=== PATIENT | male | born 1960 | race Caucasian/White ===

== ENCOUNTER 2017-12-18 22:10 | Emergency (ER) | payer OTHER ==
[~2017-12-18] VITALS: Ht 185.4 cm; Wt 59.0 kg
--- NOTE | 2017-12-18 22:30 | NUR ---
Patient brought in by rescue from [facility]. Worker called 911 due to left rib cage pain. Patient upon arrival states pain has been there 5 years. Patient slurring speech at times,falling asleeping upon interview. Admits to drink ETOH prior to arrival and smell of ETOH. No trauma noted on patient
[2017-12-18] MEDS ORDERED: IV NORMAL SALINE 1000 ML BAG IV ONE (22:45)
[2017-12-18 23:06] LABS: BASOPHILS % (AUTO) 0.6 % (0.0-2.0); EOSINOPHILS % (AUTO) 0.1 % (0.0-7.0); HEMATOCRIT 38.5 % (36.7-47.1); LYMPHOCYTES # (AUTO) 0.6 K/uL (20.0-40.0); LYMPHOCYTES % (AUTO) 8.5 % (20.5-51.5); MEAN CORPUSCULAR HEMOGLOBIN 32.3 uug (23.8-33.4); MEAN CORPUSCULAR HGB CONC 34 g/dL (32.5-36.3); MEAN CORPUSCULAR VOLUME 95.6 fL (73.0-96.2); MONOCYTES # (AUTO) 0.4 K/uL (2.0-10.0); MONOCYTES % (AUTO) 5.7 % (0.0-11.0); NEUTROPHILS # (AUTO) 6.2 K/uL (1.8-8.9); NEUTROPHILS % (AUTO) 85.1 % (38.5-71.5); PLATELET COUNT (AUTO) 236 K/uL (152-348); RED BLOOD CELL COUNT(AUTO) 4.02 MIL/uL (4.06-5.63); WHITE BLOOD COUNT (AUTO) 7.3 K/uL (3.6-10.2)
[2017-12-18 23:16] LABS: CREATININE 2.9 mg/dL (0.6-1.3); POTASSIUM 3.5 mmol/L (3.5-5.1)
[2017-12-18 23:19] LABS: BILIRUBIN,DIRECT 0.1 mg/dL (0.0-0.2); BILIRUBIN,TOTAL 0.4 mg/dL (0.2-1.0); TOTAL PROTEIN, SERUM 7.1 g/dL (6.4-8.2)
[2017-12-18] MEDS ORDERED: DEXTROSE 50% 50 ML DISP.SYRIN ONE (23:29)
[2017-12-18] MEDS ORDERED: DEXTROSE 50% 50 ML DISP.SYRIN IV ONE (23:30)
--- NOTE | 2017-12-19 00:10 | NUR ---
Dr Maher spoke with Dr Weems from [facility].Dr Weems accepted patient. Waiting for transfer information
--- NOTE | 2017-12-19 00:57 | NUR ---
Armani business case analyst from [employer] gave authorization for ambulance [id number] for [facility]
--- NOTE | 2017-12-19 01:38 | NUR ---
Patient sleeping with no distress noted
--- NOTE | 2017-12-19 03:05 | NUR ---
Spoke to [facility] case management and informed Armani that DR Weems aceepted patient at [phone] and Leighton Barrow from [employer] press needs IPA to call [facility] to [facility] to admit patient. Waitng for transfer info
--- NOTE | 2017-12-19 03:51 | NUR ---
[facility] room #[id number] Call for report is [phone]
--- NOTE | 2017-12-19 03:55 | NUR ---
Called [facility] for transportation of Patient to [facility]. ETA 1.5hr
--- NOTE | 2017-12-19 05:07 | NUR ---
Gave SBAR report to Christopher douglas [facility]
[2017-12-19] MEDS ORDERED: ONDANSETRON IV *ER 4 MG/2 ML VIAL IV ONE (05:30)
[2017-12-19] MEDS ORDERED: ONDANSETRON 4 MG/2 ML VIAL ONE (05:31)
--- NOTE | 2017-12-19 05:48 | NUR ---
TYransfered to [facility] via [employer] with no distress noted
== END 2017-12-19 05:49 | disposition short-term general hospital (02) ==
LOC: ER 22:11
DX: N28.9 Disorder of kidney and ureter, unspecified (principal); R07.89 Other chest pain; F10.121 Alcohol abuse with intoxication delirium; E16.2 Hypoglycemia, unspecified; I10 Essential (primary) hypertension
CPT/HCPCS: 36415; 70030-TC; 71045; 85025; 85730; 93005; A4663; G0480; J2405; J3490; J7030